=== PATIENT | female | born 1995 | race Asian ===

== ENCOUNTER 2019-01-31 02:09 | Emergency (ER) | payer OTHER ==
[~2019-01-31] VITALS: Ht 165.1 cm; Wt 56.7 kg
--- NOTE | 2019-01-31 02:30 | NUR ---
Language line called at this time for an vascular radiologist.
--- NOTE | 2019-01-31 04:11 | ED GI ---
General Chief Complaint: Abdominal/GI Problems Stated Complaint: ABD PAIN,CONSTIPATION X 3 DAYS,YESTERDAY HAD SOME Nursing Triage Note: Pt complaining of abd cramping and states she has been constipated for about 3 days Sepsis Screen: No Definite Risk Source of Information: Patient Exam Limitations: Language Barrier History of Present Illness Date Seen by Provider: January 31, 2019 Time Seen by Provider: 03:52 Initial Comments Here with report of blood from her bottom and feeling constipated for the last 3 days. Complains of suprapubic pain. History via newspaper or periodical editor and examined with newspaper or periodical editor via phone. Patient had baby 2 months and one week ago. Denies having hemorrhoids or problems like this before. Does admit to intermittent constipation. Denies nausea or vomiting. Denies dysuria. Last menstrual period 3 weeks ago. Timing/Duration: 3-4 Days Severity/Quality: Mild, Aching Location: Suprapubic Radiation: No Radiation Activities at Onset: None Modifying Factors: Worsens With Defecating Associated Symptoms: Denies Symptoms Allergies and Home Medications Allergies Coded Allergies: No Known Drug Allergies (Unverified , 01/31/19) Home Medications Hydrocortisone 30 Gm Cream..g., 1 GM RC TID Apply a small amount to rectum 3 times daily Prescribed by: JENNA WHITFIELD on 01/31/19 0420 Patient Home Medication List Home Medication List Reviewed: Yes Review of Systems Review of Systems Constitutional: see HPI; No chills, No fever Respiratory: No Symptoms Reported Cardiovascular: No Symptoms Reported Gastrointestinal: See HPI, Abdominal Pain, Constipated, Rectal Bleeding Genitourinary: No Symptoms Reported Musculoskeletal: no symptoms reported Past Kbotpwr-Yizrvg-Aofnvq Hx Past Med/Social Hx: Reviewed Nursing Past Med/Soc Hx Patient Social History Alcohol Use: Denies Use Recreational Drug Use: No Smoking Status: Never a Smoker 2nd Hand Smoke Exposure: No Recent Foreign Travel: No Contact w/Someone Who Travel: No Recent Infectious Disease Expo: No Recent Hopitalizations: No Physical Abuse: No Sexual Abuse: No Mistreated: No Past Medical History Surgeries: No Respiratory: No Cardiac: No Neurological: No Genitourinary: No Gastrointestinal: No Musculoskeletal: No Endocrine: No HEENT: No Cancer: No Psychosocial: No Integumentary: No Blood Disorders: No Family Medical History Reviewed Nursing Family Hx Physical Exam Vital Signs Vital Signs - First Documented 01/31/19 02:30 Temp 97.6 Pulse 88 Resp 16 B/P (MAP) 137/78 (97) Pulse Ox 100 Capillary Refill : Less Than 3 Seconds Height/Weight/BMI Height: 5'5.00" Weight: 125lbs. oz. 56.884800xs; BMI Method:Estimated General Appearance: WD/WN, no apparent distress Neck: full range of motion, supple Respiratory: lungs clear, normal breath sounds Cardiovascular: regular rate, rhythm, no murmur Gastrointestinal: soft, tenderness (suprapubic) Rectal: heme positive stool, hemorrhoids (anterior/peroneal side small, 1 cm thrombosed hemorrhoid.); No mass, No tenderness; other (no obvious rectal mass. No significant stool ball noted although limited exam due to inability to tolerate exam.) Progress/Results/Core Measures Results/Orders Lab Results Laboratory Tests Test 01/31/19 04:08 Range/Units Urine Color YELLOW Urine Clarity SLIGHTLY CLOUDY Urine pH 6.5 5-9 Urine Specific [place] 1.015 L 1.016-1.022 Urine Protein NEGATIVE NEGATIVE Urine Glucose (UA) NEGATIVE NEGATIVE Urine Ketones NEGATIVE NEGATIVE Urine Nitrite NEGATIVE NEGATIVE Urine Bilirubin NEGATIVE NEGATIVE Urine Urobilinogen NORMAL NORMAL MG/DL Urine Leukocyte Esterase 3+ H NEGATIVE Urine RBC (Auto) 3+ H NEGATIVE Urine RBC 2-5 H /HPF Urine WBC 5-10 H /HPF Urine Crystals NONE /LPF Urine Bacteria MODERATE H /HPF Urine Casts NONE /LPF Urine Mucus NEGATIVE /LPF Urine Culture Indicated YES My Orders Orders - JENNA WHITFIELD MD Abdomen/Kub 1view (01/31/19 04:08) Urine Bedside (01/31/19 04:08) Fecal Occult Bedside (01/31/19 04:08) Ua Culture If Indicated (01/31/19 04:10) Urine Culture (01/31/19 04:08) Cephalexin Capsule (Keflex Capsule) (01/31/19 04:48) Vital Signs/I&O 01/31/19 02:30 Temp 97.6 Pulse 88 Resp 16 B/P (MAP) 137/78 (97) Pulse Ox 100 Blood Pressure Mean: 97 Progress Progress Note : Progress Note Seen and evaluated with assistance of newspaper or periodical editor line. Rectal exam performed and Hemoccult positive but still grossly negative. Tender hemorrhoid. I did discuss with patient and family regarding use of MiraLAX and Anusol. We will do MiraLAX [id number] and I will prescribe Anusol. UA and KUB ordered. 0450: UTI noted. Keflex 500 mg by mouth. Discharged home with return precautions. Patient and family verbalize understanding instructions and agreement with plan. Departure Impression Primary Impression: Hemorrhoid Qualified Codes: K64.9 - Unspecified hemorrhoids Additional Impressions: Constipation Qualified Codes: K59.00 - Constipation, unspecified Urinary tract infection Qualified Codes: N30.00 - Acute cystitis without hematuria Disposition: HOME, SELF-CARE Condition: Improved Departure-Patient Inst. Decision time for Depature: 04:16 Referrals: NO,LOCAL PHYSICIAN (PCP/Family) Primary Care Physician Patient Instructions: Constipation, Adult (DC), Hemorrhoids, Urinary Tract Infection, Adult (DC) Add. Discharge Instructions: All discharge instructions reviewed with patient and/or family. Voiced understanding. You may use [id number] MiraLAX or the generic, one capful twice daily for 3 days and then one capful daily thereafter to keep stools soft. You may increase or decrease the dose to keep stools and normal range. Drink plenty of fluids. Use Anusol as prescribed. Follow-up with your Dr. in a few days for recheck. Return for worse pain, fever, vomiting, weakness, breathing problems or other concerns as needed. Scripts Cephalexin (Cephalexin) 500 Mg Tablet 500 MG PO BID, #10 TAB 0 Refills Prov: JENNA WHITFIELD MD 01/31/19 Hydrocortisone (Anusol-Hc) 30 Gm Cream..g. 1 GM RC TID, #1 TUBE 1 Refill Apply a small amount to rectum 3 times daily Prov: JENNA WHITFIELD MD 01/31/19 JENNA WHITFIELD MD January 31, 2019 04:10
[2019-01-31 04:17] LABS: BILIRUBIN,URINE NEGATIVE (NEGATIVE); CLARITY,URINE SLIGHTLY CLOUDY; COLOR,URINE YELLOW; GLUCOSE, URINE (UA) NEGATIVE (NEGATIVE); KETONES,URINE NEGATIVE (NEGATIVE); LEUKOCYTE ESTERASE ,URINE 3+ (NEGATIVE); NITRITE,URINE NEGATIVE (NEGATIVE); PH,URINE 6.5 (5-9); PROTEIN,URINE NEGATIVE (NEGATIVE); UROBILINOGEN,URINE NORMAL (NORMAL)
[2019-01-31] MEDS ORDERED: HYDR30CR71 RC (04:20)
[2019-01-31 04:34] LABS: BACTERIA,URINE MODERATE /HPF
[2019-01-31] MEDS ORDERED: CEPHALEXIN 250 MG (KEFLEX) CAP PO STA (04:48)
[2019-01-31] MEDS ORDERED: CEPH500T PO (04:50)
[2019-01-31] MEDS ORDERED: IBUPROFEN 800 MG (MOTRIN) TAB PO STA (04:55)
[2019-01-31 04:59] VITALS: BP 130/80
--- NOTE | 2019-01-31 06:49 | Diagnostic Imaging Report ---
EXAM: ABDOMEN/KUB 1VIEW INDICATION: Abdominal pain. COMPARISON: None. FINDINGS: Nonspecific bowel gas pattern. Moderate amount of stool throughout the colon and rectum. No free intraperitoneal air. No acute osseous findings. No suspicious radiopaque bodies. IMPRESSION: No acute radiographic findings in the abdomen. Moderate amount of stool in the colon may represent a degree of constipation. Dictated by: Dictated on workstation # [id number]
== END 2019-01-31 04:59 | disposition home or self-care (01) ==
LOC: ER 02:18
DX: K64.5 Perianal venous thrombosis (principal); K59.00 Constipation, unspecified; N39.0 Urinary tract infection, site not specified; Z79.51 Long term (current) use of inhaled steroids
CPT/HCPCS: 74018; 81000; 84703; 87088

== ENCOUNTER 2019-07-20 19:14 | Emergency (ER) | payer OTHER ==
[~2019-07-20] VITALS: Ht 165 cm; Wt 70.5 kg
[~2019-07-20 19:14] MED LIST: CEPH500T PO; HYDR30CR71 RC
[2019-07-20 20:03] LABS: BILIRUBIN,URINE NEGATIVE (NEGATIVE); CLARITY,URINE CLEAR; COLOR,URINE YELLOW; GLUCOSE, URINE (UA) NEGATIVE (NEGATIVE); KETONES,URINE NEGATIVE (NEGATIVE); LEUKOCYTE ESTERASE ,URINE NEGATIVE (NEGATIVE); NITRITE,URINE NEGATIVE (NEGATIVE); PH,URINE 5 (5-9); PROTEIN,URINE NEGATIVE (NEGATIVE)
[2019-07-20 20:10] LABS: BACTERIA,URINE TRACE /HPF; WBC,URINE 0-2 /HPF
--- NOTE | 2019-07-20 20:10 | ED GU-Female ---
General Chief Complaint: - Urinary Stated Complaint: MENSTRUAL CYCLE CONCERNS History of Present Illness Date Seen by Provider: Jul 20, 2019 Time Seen by Provider: 19:50 Initial Comments 24-year-old [place] patient reports for menstrual irregularities. Using the language line for her history and exam. Her and child are present also. She reports having an IUD placed in [place] in March or April of this year. She has been doing well string is still palpable. She reports over the last 2 weeks having spotting when wiping after urinating. She denies needing to use a tampon and pad for bleeding. Timing/Duration: intermittent Associated Symptoms: denies symptoms Allergies and Home Medications Allergies Coded Allergies: No Known Drug Allergies (Unverified , 01/31/19) Home Medications Cephalexin 500 Mg Tablet, 500 MG PO BID Prescribed by: JENNA WHITFIELD on 01/31/19449 Hydrocortisone 30 Gm Cream..g., 1 GM RC TID Apply a small amount to rectum 3 times daily Prescribed by: JENNA WHITFIELD on 01/31/19419 Patient Home Medication List Home Medication List Reviewed: Yes Review of Systems Review of Systems Constitutional: no symptoms reported, see HPI Genitourinary: see HPI, discharge (vaginal spotting when urinating.) : No All Other Systemes Reviewed Negative Unless Noted: Yes Past Sennxjd-Bdqfvd-Hxzsdn Hx Past Med/Social Hx: Reviewed Nursing Past Med/Soc Hx Patient Social History Alcohol Use: Denies Use Recreational Drug Use: No 2nd Hand Smoke Exposure: No Recent Foreign Travel: No Contact w/Someone Who Travel: No Recent Hopitalizations: No Physical Abuse: No Sexual Abuse: No Mistreated: No Fear: No Past Medical History Surgeries: No Respiratory: No Cardiac: No Neurological: No Genitourinary: No Gastrointestinal: No Musculoskeletal: No Endocrine: No HEENT: No Cancer: No Psychosocial: No Integumentary: No Blood Disorders: No Physical Exam Vital Signs Vital Signs - First Documented 07/20/19 07/20/19 19:21 20:57 Temp 36.7 Pulse 92 Resp 18 B/P (MAP) 144/73 (96) Pulse Ox 100 O2 Delivery Room Air Capillary Refill : Height, Weight, BMI Height: 5'5.00" Weight: 125lbs. oz. 56.887815yb; BMI Method:Estimated General Appearance: WD/WN, no apparent distress Cardiovascular: normal peripheral pulses, regular rate, rhythm Respiratory: chest non-tender, lungs clear, normal breath sounds Gastrointestinal: normal bowel sounds, non tender, soft; No distended, No guarding, No rebound, No tenderness Back: normal inspection, no CVA tenderness, no vertebral tenderness Neurologic/Psychiatric: no motor/sensory deficits, alert, normal mood/affect, oriented x 3 Skin: normal color, warm/dry Progress/Results/Core Measures Suspected Sepsis SIRS Temperature: Pulse: Respiratory Rate: Blood Pressure / Mean: Results/Orders Lab Results Laboratory Tests Test 07/20/19 19:55 Range/Units Urine Color YELLOW Urine Clarity CLEAR Urine pH 5 5-9 Urine Specific [place] 1.030 H 1.016-1.022 Urine Protein NEGATIVE NEGATIVE Urine Glucose (UA) NEGATIVE NEGATIVE Urine Ketones NEGATIVE NEGATIVE Urine Nitrite NEGATIVE NEGATIVE Urine Bilirubin NEGATIVE NEGATIVE Urine Urobilinogen NORMAL NORMAL MG/DL Urine Leukocyte Esterase NEGATIVE NEGATIVE Urine RBC (Auto) 5+ H NEGATIVE Urine RBC 10-25 H /HPF Urine WBC 0-2 /HPF Urine Squamous Epithelial Cells 10-25 H /HPF Urine Crystals NONE /LPF Urine Bacteria TRACE /HPF Urine Casts NONE /LPF Urine Mucus NEGATIVE /LPF Urine Culture Indicated NO My Orders Orders - ZORA LOGAN Ua Culture If Indicated (07/20/19 19:29) Urine Bedside (07/20/19 19:29) Vital Signs/I&O 07/20/19 07/20/19 19:21 20:57 Temp 36.7 36.7 Pulse 92 89 Resp 18 16 B/P (MAP) 144/73 (96) 138/72 (96) Pulse Ox 100 O2 Delivery Room Air Capillary Refill : Progress Note : Time: 19:50 Progress Note Patient seen and evaluated, will obtain urine hCG and UA. 2030 results of labs reviewed with the patient and her spouse. Reassured that she may have some spotting with IUD in place. Their main concern was if they could have intercourse with the spotting. She denies pain with intercourse. She also had questions about using douches. Discouraged douching. Reassured they can have intercourse, even with occasional spotting. To follow up with Dr. Street if continued concerns. Departure Impression Primary Impression: Vaginal spotting Disposition: 01 HOME, SELF-CARE Condition: Improved Departure-Patient Inst. Decision time for Depature: 20:45 Referrals: NO,LOCAL PHYSICIAN (PCP/Family) Primary Care Physician Patient Instructions: Intrauterine Devices (IUD) Add. Discharge Instructions: Continue to monitor your spotting and track on calendar. Use pad. Follow up at [facility], if continued symptoms. Return to the emergency department for new, urgent health care problems. All discharge instructions reviewed with patient and/or family. Voiced understanding. Copy Copies To 1: HATTIE FERNANDO MD, AMY ARNP Jul 20, 2019 20:10
[2019-07-20 20:57] VITALS: BP 138/72
== END 2019-07-20 20:58 | disposition home or self-care (01) ==
LOC: EDUNIT# 19:14 → ER 19:17
DX: N92.1 Excessive and frequent menstruation with irregular cycle (principal)
CPT/HCPCS: 81000; 84703; 99282